=== PATIENT | male | born 1945 | race Asian ===

== ENCOUNTER 2020-07-13 19:35 | Emergency (ER) | payer BC ==
[2020-07-13] MEDS ORDERED: Ondansetron 4 MG Tab.DIS PO ONE (19:36)
[2020-07-13] MEDS ORDERED: Levofloxacin/Dextrose 5%-Water 500 MG in Premix Bag 1 BAG IV ONE (19:55)
[2020-07-13 20:27] LABS: ANION GAP 14.8 mEq/L (7-13)
--- NOTE | 2020-07-13 21:17 | CT ---
PROCEDURE INFORMATION: Exam: CT Abdomen And Pelvis Without Contrast Exam date and time: 07/13/2020 8:10 PM Age: 75 years old Clinical indication: Pain; Left flank; Additional info: Flank pain TECHNIQUE: Imaging protocol: Computed tomography of the abdomen and pelvis without contrast. Coronal and sagittal reformatted images are submitted. Radiation optimization: All CT scans at this facility use at least one of these dose optimization techniques: automated exposure control; mA and/or kV adjustment per patient size (includes targeted exams where dose is matched to clinical indication); or iterative reconstruction. COMPARISON: Inferior images from a chest CTA dated 06/03/2020 FINDINGS: Coronary artery calcifications and cardiomegaly are again demonstrated, but there is a new small right anterior pericardial effusion which measures up to 10 mm in thickness. There are subtle changes of underlying emphysema. The prior right pleural effusion has resolved, but there is scattered mild bilateral basilar atelectasis, and demonstrated on images 3-8 of series 5 is a new subtle peripheral right midlung micronodular infiltrate, with nodular components measuring up to 5 mm in diameter. There is also mild right lower lobe bronchiectasis, but the visualized inferior thoracic structures are otherwise unremarkable. The prostate gland is moderately enlarged. There is a 4 x 5 mm stone distally within the left ureterovesical junction, with associated moderate hydroureter, and mild hydronephrosis and perinephric fat stranding, consistent with distal left urinary tract obstruction. There are also nonobstructing renal calyceal stones bilaterally, measuring up to 3 mm in diameter within an interpolar left renal calyx. The noncontrasted kidneys, ureters, and urinary bladder are otherwise unremarkable. There is a a smooth ovoid soft tissue density within the left inguinal canal; correlate clinically for suspected cryptorchidism. Calcified gallstones are again demonstrated. No CT evidence for abnormal gallbladder wall thickening, pericholecystic fluid or inflammatory changes. There are scattered diverticula, predominantly of the sigmoid and descending colon, without diverticulitis. Centered at the L1 level is a flattened posterior paraspinal subcutaneous lipoma which measures 1.5 cm AP x 5 cm transverse by 5 cm craniocaudal. Generalized osteopenia is suggested, and there is moderate levoconvex thoracolumbar scoliosis, and moderate to severe lumbar spine degenerative changes, with associated degenerative grade 1 anterolisthesis of L5 on S1. There are moderate atherosclerotic vascular calcifications, and there is distal infrarenal abdominal aortic ectasia, and bilateral common iliac artery aneurysms, measuring 2 cm in diameter on the right and 2.3 cm in diameter on the left, but there is no abdominal aortic aneurysm. The noncontrasted abdominal and pelvic organs, vascular and intestinal structures, osseous, muscular, and soft tissue structures are otherwise unremarkable. The appendix is normal. No abdominal or pelvic inflammatory process, free fluid or air, intestinal obstruction, suspicious soft tissue mass, or identified lymphadenopathy. IMPRESSION: ---Obstructing 4 x 5 mm distal left UVJ stone. ---Interval resolution of the prior right pleural effusion, but there is a new small right anterior pericardial effusion, scattered mild bilateral basilar atelectasis, and a new subtle peripheral right midlung micronodular infiltrate, most likely inflammatory or postinflammatory, although neoplasm cannot be completely excluded, thus a 3-month follow-up chest CT scan is recommended. 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
[2020-07-13] MEDS ORDERED: Ondansetron 4 MG Tab.DIS ONE (21:27)
--- NOTE | 2020-07-13 21:27 | EDM.PDOC ---
ED HPI GENERAL MEDICAL PROBLEM - General Chief Complaint: Flank Pain Stated Complaint: NEEDS TEST DONE Time Seen by Provider: 07/13/20 19:40 Source of Information: Reports: Patient History Limitations: Reports: No Limitations - History of Present Illness INITIAL COMMENTS - FREE TEXT/NARRATIVE: ED with c/o severe left flank pain radiating low abdomen Reports taking toradol today and had been helping but not easing pain as much this genaro. Concern for stone or obstructive uropathy. No fever o nausea no vomiting. Has been taking lasix as directed. - Related Data Allergies Allergy/AdvReac Type Severity Reaction Status Date / Time No Known Allergies Allergy Verified 06/03/20 12:07 Past Medical History Cardiovascular History: Reports: Heart Failure, [place], Pulmonary Hypertension Respiratory History: Reports: COPD - Past Surgical History Cardiovascular Surgical History: Reports: Coronary Artery Stent Social & Family History - Tobacco Use Tobacco Use Status *Q: Former Tobacco User Used Tobacco, but Quit: Yes Month/Year Tobacco Last Used: may 2020 - Caffeine Use Caffeine Use: Reports: Coffee - Recreational Drug Use Recreational Drug Use: No ED ROS GENERAL - Review of Systems Review Of Systems: Comprehensive ROS is negative, except as noted in HPI. ED EXAM, RENAL/ - Physical Exam Exam: See Below Exam Limited By: No Limitations General Appearance: Alert, No Apparent Distress Eye Exam: Bilateral Eye: EOMI Respiratory/Chest: No Respiratory Distress, Normal Breath Sounds Back Exam: CVA Tenderness (L) Extremities: Normal Range of Motion Neurological: Alert, Oriented, Normal Cognition Psychiatric: Normal Affect, Normal Mood Skin Exam: Warm, Dry, Intact, Normal Color Course - Vital Signs Last Recorded V/S: Last Vital Signs Temp 97.5 F 07/13/20 19:41 Pulse 93 07/13/20 19:41 Resp 18 07/13/20 19:41 BP 107/65 07/13/20 19:41 Pulse Ox 94 L 07/13/20 19:41 - Orders/Labs/Meds Labs: Laboratory Tests 07/13/20 07/13/20 07/13/20 Range/Units 19:53 20:01 20:01 WBC 13.3 H (5.0-10.0) 10^3/uL RBC 4.45 L (4.6-6.2) 10^6/uL Hgb 14.0 (14.0-18.0) g/dL Hct 41.9 (40.0-54.0) % MCV 94.2 (80-100) fL MCH 31.5 (27.0-34.0) pg MCHC 33.4 (33.0-35.0) g/dL Plt Count 307 (150-450) 10^3/uL Neut % (Auto) 74.8 (42.2-75.2) % Lymph % (Auto) 12.8 L (20.5-50.1) % [place] % (Auto) 6.9 (2-8) % Eos % (Auto) 4.9 H (1.0-3.0) % Baso % (Auto) 0.6 (0.0-1.0) % Add Manual Diff Yes Neutrophils % (Manual) 74 (42-75) % Lymphocytes % (Manual) 15 L (20-50) % Monocytes % (Manual) 3 (2-8) % Eosinophils % (Manual) 7 H (1-3) % Myelocytes % 1 Poikilocytosis 1+ slight Sodium 138 (136-145) mmol/L Potassium 4.8 (3.5-5.1) mmol/L Chloride 103 (98-107) mmol/L Carbon Dioxide 25 (21-32) mmol/L Anion Gap 14.8 H (7-13) mEq/L BUN 44 H (7-18) mg/dL Creatinine 1.56 H (0.70-1.30) mg/dL Est Cr Clr Drug Dosing 39.43 mL/min Estimated GFR (MDRD) 44 BUN/Creatinine Ratio 28.2 (No establ ref range) Glucose 166 H (70-99) mg/dL Calcium 9.0 (8.5-10.1) mg/dL Total Bilirubin 0.4 (0.2-1.0) mg/dL AST 15 (15-37) U/L ALT 37 (16-63) U/L Alkaline Phosphatase 97 (46-116) U/L B-Natriuretic Peptide 817 H (0-100) pg/ml Total Protein 7.8 (6.4-8.2) g/dL Albumin 3.7 (3.4-5.0) g/dL Globulin 4.1 Albumin/Globulin Ratio 0.9 Urine Color Yellow (YELLOW) Urine Appearance Clear (CLEAR) Urine pH 5.0 (5.0-9.0) Ur Specific [place] >= 1.030 (1.005-1.030) Urine Protein Negative (NEGATIVE) Urine Glucose (UA) Negative (NEGATIVE) Urine Ketones Negative (NEGATIVE) Urine Occult Blood Large H (NEGATIVE) Urine Nitrite Negative (NEGATIVE) Urine Bilirubin Negative (NEGATIVE) Urine Urobilinogen 0.2 (0.2-1.0) mg/dL Ur Leukocyte Esterase Negative (NEGATIVE) U Hyaline Cast (Auto) Few Urine RBC 30-40 H /HPF Urine WBC 0-5 (0-5/HPF) /HPF Ur Epithelial Cells Rare (NOT SEEN) /HPF Urine Bacteria Few (0-FEW/HPF) /HPF Meds: Medications Discontinued Medications Generic Name Dose Route Start Last Admin Trade Name Freq PRN Reason Stop Dose Admin Levofloxacin/Dextrose 500 mg/ 100 mls @ 100 mls/hr 07/13/20 19:55 Premix IV 07/13/20 20:54 ONETIME ONE Ondansetron HCl Confirm 07/13/20 21:27 07/13/20 21:34 Ondansetron 4 Mg Tab.Dis Administered 07/13/20 21:28 Not Given Dose 8 mg .ROUTE .STK-MED ONE Tamsulosin HCl 0.4 mg 07/13/20 21:28 07/13/20 21:35 Tamsulosin 0.4 Mg Cap.Er PO 07/13/20 21:29 0.4 mg ONETIME ONE Administration Departure - Departure Time of Disposition: 21:21 Disposition: Home, Self-Care 01 Condition: Good Clinical Impression: Ureteric colic, Kidney stones - Discharge Information *PRESCRIPTION DRUG MONITORING PROGRAM REVIEWED*: No *COPY OF PRESCRIPTION DRUG MONITORING REPORT IN PATIENT NAVEEN: No Instructions: Kidney Stones, [id number] Referrals: Daniel Valenzuela MD [Primary Care Provider] - Forms: ED Department Discharge Additional Instructions: Follow up primary care Follow up with urology Flomax 0.4mg one daiy zofran 4mg ODT one every 4 hours as needed for nause Sepsis Event Note (ED) - Evaluation Sepsis Screening Result: No Definite Risk - Focused Exam Vital Signs: Vital Signs Temp Pulse Resp BP Pulse Ox 07/13/20 19:41 97.5 F 93 18 107/65 94 L
[2020-07-13] MEDS ORDERED: Tamsulosin 0.4 MG Cap.ER PO ONE (21:28)
== END 2020-07-13 21:35 | disposition home or self-care (01) ==
LOC: DL.ED 19:35
DX: N13.2 Hydronephrosis with renal and ureteral calculous obstruction (principal); N23 Unspecified renal colic; I11.0 Hypertensive heart disease with heart failure; I50.9 Heart failure, unspecified; I25.2 Old myocardial infarction; Z87.891 Personal history of nicotine dependence
CPT/HCPCS: 36415; 74176; 80053; 81001; 83880; 85025; 99283; 99284; A9270